=== PATIENT | male | born 1960 | race Caucasian/White ===

== ENCOUNTER 2021-09-30 19:57 | Inpatient (IN) | payer OTHER ==
[~2021-09-30] VITALS: Ht 167.6 cm; Wt 60.3 kg
[2021-09-30 20:58] LABS: HEMOGLOBIN 13.7 gm/dl (14.0-17.5); RED BLOOD COUNT 4.39 M/UL (4.20-5.50); WHITE BLOOD COUNT 21.4 K/UL (4.5-11.0)
[2021-09-30 21:24] LABS: BUN/CREATININE RATIO 34 (0-10)
[2021-10-01] MEDS ORDERED: OMEPRAZOLE40 MG PO (03:05)
[2021-10-01] MEDS ORDERED: SPIRIVA HANDIH18 MCG INH (03:06)
[2021-10-01] MEDS ORDERED: CLARITIN10 M2 PO (03:06)
[2021-10-01] MEDS ORDERED: MEGACE 400400 MG/10 PO (03:06)
[2021-10-01] MEDS ORDERED: SINGULAIR10 MG PO (03:07)
[2021-10-01] MEDS ORDERED: INDERAL TAB 1010 MG PO (03:08)
[2021-10-01] MEDS ORDERED: ALBUTEROL2.5 MG/3 M INH (03:09)
[2021-10-01 07:33] LABS: RED BLOOD COUNT 3.86 M/UL (4.20-5.50); WHITE BLOOD COUNT 17.3 K/UL (4.5-11.0)
[2021-10-01 07:34] LABS: HEMOGLOBIN 11.5 gm/dl (14.0-17.5)
[2021-10-01 07:56] LABS: BUN/CREATININE RATIO 35 (0-10)
--- NOTE | 2021-10-01 14:05 | NUR ---
PATIENT REMOVED TELEMETRY AND PULSE OX. REFUSES TO WEAR AT THIS TIME.
[2021-10-01] MEDS ORDERED: DAILY VITE1 EACH PO (17:32)
[2021-10-01] MEDS ORDERED: VIIBRYD20 MG PO (17:48)
[2021-10-01] MEDS ORDERED: METHADONE10 MG/1 M1 PO (17:52)
[2021-10-01] MEDS ORDERED: ENSURE LIQUID237 ML PO (17:54)
[2021-10-01] MEDS ORDERED: ANTACID LIQUID355 ML PO (17:55)
[2021-10-02 07:17] LABS: HEMOGLOBIN 13.1 gm/dl (14.0-17.5); RED BLOOD COUNT 4.24 M/UL (4.20-5.50); WHITE BLOOD COUNT 20.2 K/UL (4.5-11.0)
[2021-10-02 08:05] LABS: BUN/CREATININE RATIO 40 (0-10)
[2021-10-02] MEDS ORDERED: AUGMENTIN 875-1 EACH PO (10:21)
[2021-10-02] MEDS ORDERED: AZITHROMYCIN500 MG PO (10:21)
[2021-10-02] MEDS ORDERED: ATORVASTATIN CA20 MG PO (10:21)
[2021-10-02] MEDS ORDERED: PREDNISONE 20 M20 MG PO ×2 (10:21→10:35)
[2021-10-02] MEDS ORDERED: COMBIVENT RESPIM4 GM INH (10:21)
[2021-10-02] MEDS ORDERED: MUCINEX600 MG PO (10:35)
[2021-10-02] MEDS ORDERED: BENZONATATE200 MG PO (10:35)
== END 2021-10-02 12:22 | disposition home or self-care (01) | DRG 871 ==
LOC: ER1 19:57 → M/S 10-01 01:16 → CDU 10-01 01:16 → M/S 10-01 03:03
PROVIDERS: Internal Medicine; Physician Assistant; Student in an Organized Health Care Education/Training Program; ADMIT Internal Medicine
PROC: 3E0333Z Introduction of Anti-inflammatory into Peripheral Vein, Percutaneous Approach (ICD-10-PCS; principal; 2021-09-30)
DX: A41.9 Sepsis, unspecified organism (principal); J96.01 Acute respiratory failure with hypoxia; J18.9 Pneumonia, unspecified organism; Z20.822 Contact with and (suspected) exposure to COVID-19; J44.0 Chronic obstructive pulmonary disease with (acute) lower respiratory infection; J44.1 Chronic obstructive pulmonary disease with (acute) exacerbation; R65.20 Severe sepsis without septic shock; F19.10 Other psychoactive substance abuse, uncomplicated; I73.9 Peripheral vascular disease, unspecified; K21.9 Gastro-esophageal reflux disease without esophagitis; D50.9 Iron deficiency anemia, unspecified; F17.210 Nicotine dependence, cigarettes, uncomplicated; Z99.81 Dependence on supplemental oxygen; Z79.899 Other long term (current) drug therapy; Z89.412 Acquired absence of left great toe; Z82.49 Family history of ischemic heart disease and other diseases of the circulatory system
CPT/HCPCS: 36600; 71045; 80048; 80053; 80307; 81001; 82550; 82553; 82803; 83874; 84484; 85025; 85379; 87040; 93005; 94640; 94664; 94760; 96365; 96366; 96375; 99285; J0456; J0696; J1100; J2060; J2920; J7030; Q9967; U0002